=== PATIENT | male | born 2005 | race Two or more races ===

== ENCOUNTER 2025-02-26 15:43 | Emergency (ER) | payer OTHER ==
[~2025-02-26] VITALS: Ht 182.9 cm; Wt 81.8 kg
[2025-02-26 15:49] VITALS: BP 105/55; PULSE 60; RESP 18; TEMP 99; O2SAT 98
[2025-02-26] MEDS ORDERED: TRI2515C TP (16:14)
== END 2025-02-26 16:44 | disposition home or self-care (01) ==
LOC: EMS 15:43
DX: L30.9 Dermatitis, unspecified (principal); F12.90 Cannabis use, unspecified, uncomplicated; F17.210 Nicotine dependence, cigarettes, uncomplicated
CPT/HCPCS: 99283; Z7502